=== PATIENT | male | born 1970 | race Caucasian/White ===

== ENCOUNTER 2023-05-29 08:55 | Outpatient (RCR) | payer BC, SELFPAY | END 2023-05-29 23:59 | disposition home or self-care (01) | LOC: RPT 08:55 | PROVIDERS: ATTENDING PHYSICIAN Family Medicine | DX: M79.621 Pain in right upper arm (principal); Z73.6 Limitation of activities due to disability | CPT/HCPCS: 97010; 97110; 97162 ==